=== PATIENT | female | born 1980 | race Caucasian/White ===

== ENCOUNTER 2019-04-29 08:24 | Outpatient (CLI) | payer BC ==
--- NOTE | 2019-04-29 10:26 | MMO ---
Bilateral MAMMO Bilat [facility]. CLINICAL HISTORY: Patient is 38 years old and is seen for diagnostic exam. The patient has no family history of breast cancer. The patient has no personal history of cancer. VIEWS: The views performed were: bilateral craniocaudal with tomosynthesis; bilateral mediolateral oblique with tomosynthesis; bilateral mediolateral with tomosynthesis; and left exaggerated craniocaudal. FILMS COMPARED: The present examination has been compared to prior imaging studies performed at MAMMOGRAM FINDINGS: The breasts are heterogeneously dense, which could obscure a lesion on mammography. Right breast: There are no suspicious masses, calcifications or areas of architectural distortion. Left breast: 9mm nodular density has a corresponding cyst on US. There are no suspicious masses, calcifications or areas of architectural distortion. There are no suspicious masses, suspicious calcifications, or new areas of architectural distortion. IMPRESSION: THERE IS NO MAMMOGRAPHIC EVIDENCE OF MALIGNANCY. FINDINGS CONVEYED TO DR. FONSECA AND TO THE PATIENT. THE PATIENT HAS BEEN INSTRUCTED TO FOLLOW UP WITH DR. FONSECA REGARDING THE PALPABLE MASS GIVEN THAT SHE HAS UNDERGONE SURGICAL REMOVAL OF A SEBACOUS CYST. A ROUTINE FOLLOW-UP MAMMOGRAM AT AGE 41 IS RECOMMENDED. THE RESULTS OF THIS EXAM WERE SENT TO THE PATIENT. ACR BI-RADS Category 2 - Benign finding MAMMOGRAPHY NOTE: 1. A negative mammogram report should not delay a biopsy if a dominant of clinically suspicious mass is present. 2. Approximately 10% to 15% of breast cancers are not detected by mammography. 3. Adenosis and dense breasts may obscure an underlying neoplasm. Reported by: LENA LOGAN MD Electonically Signed: [id number]
--- NOTE | 2019-04-29 10:54 | ULT ---
LEFT BREAST ULTRASOUND: HISTORY: Nodular density noted on diagnostic mammogram. TECHNIQUE: Targeted sonographic imaging of the left breast was performed and static images are reviewed. FINDINGS: At the 11 o'clock position, there is a well-circumscribed anechoic focus measuring 0.9 x 0.5 x 0.6 cm compatible with a cyst. IMPRESSION: BIRADS category 2, benign finding. RECOMMENDATION: Annual mammogram. With regard to the palpable focus felt by Dr. Santana, it is presumed that it has been removed seconda ry to a surgical excision of an infected sebaceous cyst that was performed 1 month ago. Nevertheless , the patient has been instructed to return back and have Dr. Pryor reexamine the patient to make mora re that the presumed removed sebaceous cyst corresponds to the palpable finding that Dr. Santana felt upon physical exam. The findings were discussed with both the patient and with Dr. Santana 04/29/2019. CODE CR POS: [place]
== END 2019-04-29 08:25 | disposition home or self-care (01) ==
LOC: BICMAMMO 08:24
PROVIDERS: ATTEND Family Medicine
DX: N63.20 Unspecified lump in the left breast, unspecified quadrant (principal)
CPT/HCPCS: 77066; G0279